=== PATIENT | female | born 1960 | race Two or more races ===

== ENCOUNTER 2018-01-21 11:21 | Outpatient (CLI) | payer BC ==
[2018-01-21 12:35] LABS: Hemoglobin 16.1 g/dL (12.0-16.0); Mean Corpuscular HGB CONC 32.4 g/dL (32.0-36.0); Mean Corpuscular Hemoglobin 29.9 pg (27.0-31.0); Mean Corpuscular Volume 92.5 fl (81.0-99.0); Mean Platelet Volume 8.1 fL (7.4-10.4); Platelet Count 274 thou/uL (130-400); RBC Distribution Width 12.1 % (11.5-14.5); Red Blood Cell (RBC) Count 5.38 mill/uL (4.20-5.40); White Blood Cell (WBC) Count 7.2 thou/uL (4.8-10.8)
== END 2018-01-21 11:22 | disposition home or self-care (01) ==
LOC: LABBT 11:21
PROVIDERS: ATTEND Student in an Organized Health Care Education/Training Program
DX: Z01.812 Encounter for preprocedural laboratory examination (principal)
CPT/HCPCS: 85027; 86850; 86900; 86901

== ENCOUNTER 2018-01-21 11:30 | Inpatient (IN) | payer BC ==
[2018-01-21 11:51] VITALS: BMI 25.4
--- NOTE | 2018-01-26 00:48 | HP ---
DATE OF ADMISSION: 01/26/2018 CHIEF COMPLAINT: Vaginal pressure and urinary incontinence. HISTORY OF PRESENT ILLNESS: This is a 57-year-old P4 with incomplete uterovaginal prolapse, cystocel e, rectocele, and mixed urinary incontinence that started definitive surgical management and is here for preoperative visit. She declined a trial of meds; however, but is amenable to it postopera tively if needed. She had urodynamics preoperatively with a PVR of 0, had normal urethral pressure p rofiles, and did not have stress leakage; however, patient was very uncomfortable and tensed during t his exam, which likely changed her results and the patient reports a significant stress urinary leaka ge with any sort of movement or Valsalva and desires to have sling surgery. CURRENT MEDICATIONS: None. PAST MEDICAL HISTORY: None. PAST SURGICAL HISTORY: Tubal ligation. GYNECOLOGIC HISTORY: No abnormal Paps. No STDs. OBSTETRIC HISTORY: G4, P4, largest baby 712. SOCIAL HISTORY: Negative x3. ALLERGIES: DEMEROL. FAMILY HISTORY: Stroke and breast cancer. REVIEW OF SYSTEMS: Negative except as noted in HPI. PHYSICAL EXAMINATION: VITAL SIGNS: On her preoperative visit, 01/21/2018, blood pressure was 102/80, weight was 147, pulse of 80, and BMI of 26. GENERAL: No acute distress. CARDIAC: Regular rate and rhythm. LUNGS: Clear to auscultation bilaterally. ABDOMEN: Soft, nontender, nondistended. EXTREMITIES: No edema, cyanosis, or clubbing. ASSESSMENT: A 57-year-old P4 with symptomatic pelvic organ prolapse and mixed urinary incontinence, desiring surgical management with a robotic-assisted total laparoscopic hysterectomy, bilateral salpi toussaint-oophorectomy, vault suspension, possible anterior and posterior repair, and mid urethral sling wi th cystoscopy. Discussed risk of surgery including risk of mesh sling including up to 10% bladder in jury, possible voiding dysfunction postoperatively or increase in urinary urgency, prolonged catheter ization, or mesh complications. Also, discussed additional risk of bleeding, transfusion, infection, damage to surrounding structures including bowel, bladder, ureter, blood vessels, nerves, conversion to open procedure, or an effective surgery for the remainder of her life correcting prolapse. Patie nt understands and wished to proceed. All questions were answered and she will follow up with me in 2 weeks' postoperative time. All postoperative care was discussed.
[2018-01-26] MEDS ORDERED: CEFAZOLIN/Water 2 GM/20 ML SYRINGE ONE (08:29)
[2018-01-26] MEDS ORDERED: Bupivacaine HCl 0.5%/Epinephrine 1:200,000/PF 30 ml Vial ONE ×2 (10:01→13:50)
[2018-01-26] MEDS ORDERED: Midazolam HCl 2 mg/2 ml Vial ONE (10:39)
[2018-01-26] MEDS ORDERED: Fentanyl 250 MCG/5 ML VIAL ONE ×2 (10:39→10:59)
[2018-01-26] MEDS ORDERED: Dexamethasone 4 mg/ml Vial ONE (10:40)
[2018-01-26] MEDS ORDERED: Lidocaine 1% w/Epinephrine 1:200K 30 ML VIAL ONE ×2 (11:04→12:57)
[2018-01-26] MEDS ORDERED: Ondansetron HCl/PF 4 MG/2 ML Vial IVP PRN (13:31)
[2018-01-26] MEDS ORDERED: Acetaminophen 325 MG TAB PO PRN (13:31)
[2018-01-26] MEDS ORDERED: Morphine 4 MG/ML Carpuject SLOW IVP PRN (13:31)
[2018-01-26] MEDS ORDERED: diphenhydrAMINE 25 MG CAP PO PRN (13:31)
[2018-01-26] MEDS ORDERED: Simethicone Chewable 80 MG TAB PO PRN (13:31)
[2018-01-26] MEDS ORDERED: Bisacodyl 10 MG SUPP PR PRN (13:31)
[2018-01-26] MEDS ORDERED: Promethazine HCl 25 MG/ML VIAL IM PRN (13:31)
[2018-01-26] MEDS ORDERED: Dexamethasone 20 MG/5 ML VIAL ONE (13:51)
[2018-01-26] MEDS ORDERED: Propofol 200 MG/20 ML VIAL ONE (13:51)
[2018-01-26] MEDS ORDERED: Ketorolac Tromethamine 30 MG/ML VIAL ONE (13:51)
[2018-01-26] MEDS ORDERED: Ondansetron HCl/PF 4 MG/2 ML Vial ONE (13:51)
[2018-01-26] MEDS ORDERED: ePHEDrine/0.9% NaCl/PF SYRINGE 50 mg/10 ml ONE (13:51)
[2018-01-26] MEDS ORDERED: PHENYLEPHRINE-NS 100 MCG/ML 10 ML SYRINGE ONE (13:51)
[2018-01-26] MEDS ORDERED: Lidocaine 1% PF 5 ML VIAL ONE (13:51)
[2018-01-26] MEDS ORDERED: HYDROmorphone 0.5 MG/0.5 ML SYRINGE ONE ×2 (14:07→14:19)
[2018-01-26] MEDS: Lactated Ringer's 1,000 ML IV SCH ×2 (16:05→21:01)
[2018-01-26] MEDS: Ketorolac Tromethamine 30 MG/ML VIAL IVP SCH (17:33)
[2018-01-26] MEDS: HYDROcodone/Acetaminophen 5/325 mg Tablet PO PRN (18:49)
[2018-01-26] MEDS: Zolpidem Tartrate 5 MG TAB PO PRN (21:01)
[2018-01-27] MEDS: Zolpidem Tartrate 5 MG TAB PO PRN
[2018-01-27 05:36] LABS: Hemoglobin 12.1 g/dL (12.0-16.0); Mean Corpuscular HGB CONC 33.6 g/dL (32.0-36.0); Mean Corpuscular Hemoglobin 30.5 pg (27.0-31.0); Mean Corpuscular Volume 90.8 fl (81.0-99.0); Mean Platelet Volume 7.7 fL (7.4-10.4); Platelet Count 200 thou/uL (130-400); RBC Distribution Width 11.9 % (11.5-14.5); Red Blood Cell (RBC) Count 3.97 mill/uL (4.20-5.40); White Blood Cell (WBC) Count 12.8 thou/uL (4.8-10.8)
[2018-01-27] MEDS: Ketorolac Tromethamine 30 MG/ML VIAL IVP SCH ×2 (05:43)
[2018-01-27] MEDS: Lactated Ringer's 1,000 ML IV SCH (06:08)
[2018-01-27] MEDS: HYDROcodone/Acetaminophen 5/325 mg Tablet PO PRN ×3 (07:57→12:19)
[2018-01-27 08:08] VITALS: BP 105/53; TEMP 98.7
--- NOTE | 2018-01-27 11:27 | OP ---
DATE OF OPERATION: 01/26/2018 PREOPERATIVE DIAGNOSES: 1. Incomplete uterovaginal prolapse. 2. Stress urinary incontinence. 3. Rectocele. POSTOPERATIVE DIAGNOSES: 1. Incomplete uterovaginal prolapse. 2. Stress urinary incontinence. 3. Rectocele. PROCEDURE: Robotic assisted total laparoscopic hysterectomy, bilateral salpingo-oophorectomy, uteros acral ligament suspension, posterior colporrhaphy, midurethral sling and cystoscopy. ESTIMATED BLOOD LOSS: 100 mL INTRAVENOUS FLUIDS: 1700 mL crystalloid. URINE OUTPUT: 100 mL of clear urine. ANESTHESIA: General endotracheal. ATTENDING SURGEON: Edith Thompson M.D. CUSTOMER ENGINEERING SPECIALIST: Nidia Castro M.D. COMPLICATIONS: None. DRAINS: Ovalle catheter. PATHOLOGY: Uterus, cervix, bilateral fallopian tubes and ovaries. FINDINGS: A small mobile uterus sounded to 8 cm, normal appearing cervix. Intraabdominally, she had normal appearing fallopian tubes and ovaries. No intra-abdominal findings noted. The uterus prolap sed to a stage III and the rectocele was also a stage III as well. On cystoscopic exam, the urethra and bladder mucosa were within normal limits. No masses injury or suture material or sling was prese nt in the bladder, the ureters had vigorous efflux bilaterally. OPERATIVE TECHNIQUE: The patient was taken to the operating room where general anesthesia was obtain ed without difficulty. The patient was prepped and draped in a sterile fashion in dorsal lithotomy p osition. A Ovalle catheter was placed in the bladder. Speculum was placed in the vagina. Anterior l ip of the cervix was grasped with a single tooth tenaculum. The uterus and sounded to 8 cm and the c ervix was dilated with Ankit dilators. The HERSON manipulator was assembled with an 8 cm tip and a 4 cm colpotomizer ring. The HERSON manipulator was inserted to the uterus and the colpotomizer ring was ad vanced to fit snugly around the cervix and all in. Speculum and tenaculum were removed out of the va ranjeet. Legs were placed in low lithotomy. Attention was turned to the abdomen. A 1% lidocaine with epinephrine was infiltrated into the umbilicus, a 12 mm skin incision was made in the umbilicus and t he Veress needle was passed into the abdomen noting an opening pressure of 0 mmHg. Pneumoperitoneum was obtained without difficulty. The Veress needle was removed. The 12 mm trocar was advanced into the abdomen and confirmed placement with robotic camera. Steep Trendelenburg was obtained, the lower quadrant robotic 8 mm trocars were placed under direct visualization after infiltrating with anesthe tic. A right upper quadrant 11 mm port was then placed under direct visualization after infiltrating with anesthetic as well. The robot was then docked. The right robotic arm contained the monopolar scissors, left robotic arm contained a fenestrated bipolar. The right fallopian tube and ovary were grasped and elevated. The ureter was noted to running a somewhat high in the pelvis. The ovary was hugged, clamped and cauterized and transected with the scissors and this was taken down to the round ligament that was cauterized and transected. The anterior leaf of the broad ligament was then opened up down to the level of the bladder flap and the posterior leaf was dropped down to the level of the uterosacral. The bladder flap was then developed, incising on the peritoneum and dissecting down di stally and bluntly with the back end of the scissors. The pubocervical fascia was then scored and ag ain bladder peritoneum was dissected down below the level of the colpotomizer ring. The vessels were then skeletonized and the ureter was again noted to be running well away from the pedicle and the ve ssels were then cauterized. The left fallopian tube and ovary were grasped and elevated the ureter o n the left side was noted and the ovary was hugged and cauterized with the fenestrated and transected with the scissors and sequentially clamped, cauterized, and transected down to the round ligament th at was incised with the scissors and the anterior leaf was opened up to the contralateral incision. The posterior leaf was dropped down and the vessels were skeletonized to allow the ureter to drop roldan y further. The vessels were then cauterized on the left side and anterior colpotomy was then perform ed. This was carried around laterally where the pedicle was again cauterized and incised on the vagi nal mucosa around the colpotomizer ring and colpotomy was completed posteriorly and the uterus was th en removed into the vagina. The scissors were traded out for the needle full service vending driver and the cuff was clos ed with a 2-0 PDS barbed suture in a running fashion with excellent reapproximation hemostasis noted. At that time, the uterus and the vagina was used to manipulate and visualize the uterosacral ligame nts and 0 Ethibond was then used to perform the vault suspension. The suture was thrown through the uterosacral ligaments x2 and then through the posterior and anterior vaginal cuff and then tied down securely. The same procedure was performed on the contralateral side. At that point, an additional 0 Ethibond suture was used to perform a Buckner culdoplasty doing a pursestring around the posterior c ul-de-sac. These needles were cut and removed out of the abdomen. Irrigation of the pelvis was perf ormed and low pressure check was performed and hemostasis was noted to be excellent. All instruments were removed out of the abdomen and the robot was then docked. The fascia of the camera port was cl osed with 0 Vicryl in a [id number]-dr-[id number] fashion. The skin was closed with a 4-0 Monocryl in a subcut icular fashion and Dermabond was applied. Attention was then turned to the vagina and a rectocele wa s still persistent and decision was made to proceed with posterior repair; however, the mid urethral sling would be placed first. The mid urethra was grasped with 2 Allis clamps and infiltrated with 1% lidocaine with epinephrine. An incision was made over the mid urethra with a scalpel and the Metzen baums were used to dissect out the subpubic space bilaterally. The suprapubic exit sites of the mid urethral sling were then marked and saline hydrodissection was performed with 30 mL on each side. At that time, the [employer] mid TVT sling was opened and this was assembled and t he left side was placed and secured with a clamp followed by the right side without difficulty. At t hat time, a Ovalle catheter was removed out of the bladder and 70 degree cystoscope was inserted to th e bladder with no abnormalities noted and vigorous ureteral efflux. The cystoscope was removed. Fol ey catheter was replaced and the tab on the sling was cut and the plastic covering of the mesh was th en pulled to the mid urethra using a right-angle clamp for tightening and appropriate tightening of t he sling was performed. The mesh exit sites of the sling were then cut and Dermabond was applied to these areas. The anterior vaginal incision was then closed with a 2-0 Vicryl in a running fashion wi th excellent hemostasis noted. The rectocele was then repaired the posterior fourchette was grabbed at 4 and 7 o'clock with Allis clamps and to retract the posterior vaginal wall. The rectocele was in filtrated with 1% lidocaine with epinephrine. The Metzenbaums were used to incise of the vaginal muc sixto on the posterior wall to the uppermost extent of the vaginal cuff. A rectal exam was performed t o note the fascial defects and the fascia was then dissected off the posterior vaginal wall into the rectum and a pursestring of the upper rectum with a 2-0 Vicryl was performed to plicate the posterior vaginal wall. Additional suture of 2-0 Vicryl was placed in the upper rectocele for excellent reapp roximation and plication. The inferior most rectocele was also plicated in the midline using figure- of-eights down to the level of the introitus and hemostasis was noted to be excellent. Irrigation wa s performed and the vaginal mucosa was then trimmed and vaginal incision was closed with a 2-0 Vicryl in a [id number] fashion. A vaginal packing was placed in and all instruments were removed out of the vagina. The patient tolerated procedure well. Sponge, lap, needle counts were correct x2. T he patient was taken to recovery room in stable condition. Patient received Ancef 2 grams prior to t he procedure.
--- NOTE | 2018-01-27 11:56 | DIS ---
ADMISSION DIAGNOSES: 1. Incomplete uterovaginal prolapse. 2. Rectocele. 3. Stress incontinence. DISCHARGE DIAGNOSES: Status post robotic assisted laparoscopic hysterectomy and bilateral salpingo-o ophorectomy. Vault suspension, posterior repair, midurethral sling and cystoscopy. DISCHARGE CONDITION: Stable. ATTENDING PHYSICIAN: Edith Thompson M.D. CONSULTATIONS: None. PROCEDURES: Robotic assisted total laparoscopic hysterectomy, bilateral salpingo-oophorectomy, vault suspension, posterior repair, midurethral sling and cystoscopy. HISTORY AND PHYSICAL EXAMINATION: Please see previously dictated H&P. HOSPITAL COURSE: The patient presented to Day Surgery to undergo scheduled surgery as above. She ellison d an uncomplicated surgery with an estimated blood loss of 100 mL. Postoperatively she was transferr ed to the floor and managed with IV Toradol and then transitioned to p.o. [place] and ibuprofen. Her v ital signs remained within normal limits. On postoperative day #1, she had no complaints, just feeli ng some pinching pain in the right lower quadrant. She did feel like she could empty her bladder com pletely. She had a voiding trial that showed a postvoid residual of 30 mL initially and subsequent p ost-voids were 75 mL. The patient's pain was well controlled. She was able to ambulate without diff iculty and tolerate a regular diet. Her exam showed a soft, appropriately tender abdomen with incisi ons that were clean, dry, and intact. She had no edema and had regular cardiac exam and chest exam. Her postoperative hemoglobin was 12.1. She was dispositioned for discharge home on postoperative da y #1 with prescriptions for [place] and ibuprofen. Her final pathology is pending at the time of disch arge. She will follow up with me in 2 weeks postoperative time.
[2018-01-27] MEDS ORDERED: ALPRAZolam 0.25 MG TAB PO SCH (14:45)
[2018-01-31] MEDS ORDERED: Ibuprofen 800 MG TAB PO SCH (22:00)
== END 2018-01-27 15:05 | disposition home or self-care (01) | DRG 743 ==
LOC: SURG A 01-26 08:12 → 3SE 01-26 14:24
PROVIDERS: ADMIT Student in an Organized Health Care Education/Training Program; ATTEND Student in an Organized Health Care Education/Training Program
PROC: 0UT94ZZ Resection of Uterus, Percutaneous Endoscopic Approach (ICD-10-PCS; principal; 2018-01-26)
PROC: 0UT24ZZ Resection of Bilateral Ovaries, Percutaneous Endoscopic Approach (ICD-10-PCS; 2018-01-26)
PROC: 0UT74ZZ Resection of Bilateral Fallopian Tubes, Percutaneous Endoscopic Approach (ICD-10-PCS; 2018-01-26)
PROC: 0US94ZZ Reposition Uterus, Percutaneous Endoscopic Approach (ICD-10-PCS; 2018-01-26)
PROC: 0JQC0ZZ Repair Pelvic Region Subcutaneous Tissue and Fascia, Open Approach (ICD-10-PCS; 2018-01-26)
PROC: 0TSD4ZZ Reposition Urethra, Percutaneous Endoscopic Approach (ICD-10-PCS; 2018-01-26)
PROC: 8E0W4CZ Robotic Assisted Procedure of Trunk Region, Percutaneous Endoscopic Approach (ICD-10-PCS; 2018-01-26)
DX: N81.2 Incomplete uterovaginal prolapse (principal); N39.46 Mixed incontinence; Z98.51 Tubal ligation status
CPT/HCPCS: 36415; 85027; 88307; A4216; C1781; J0670; J1100; J1170; J1885; J2001; J2250; J2270; J2405; J2704; J3010; Q9968

== ENCOUNTER 2023-10-29 11:50 | Outpatient (CLI) | payer MEDICARE | END 2023-10-29 11:51 | disposition home or self-care (01) | LOC: SCSRAD 11:50 | PROVIDERS: ATTEND Family Medicine | DX: J98.01 Acute bronchospasm (principal) | CPT/HCPCS: 71046 ==

== ENCOUNTER 2024-11-18 14:38 | Outpatient (CLI) | payer MEDICARE | END 2024-11-18 14:39 | disposition home or self-care (01) | LOC: BICMAMMO 14:38 | PROVIDERS: ATTEND Family Medicine | DX: N63.10 Unspecified lump in the right breast, unspecified quadrant (principal); N64.89 Other specified disorders of breast | CPT/HCPCS: 76642; 77066; G0279 ==